=== PATIENT | female | born 1960 | race Caucasian/White ===

== ENCOUNTER 2022-05-11 23:25 | Emergency (ER) | payer OTHER ==
[~2022-05-11] VITALS: Ht 160 cm; Wt 64.0 kg
[~2022-05-11 23:25] MED LIST: DULO20CA PO
--- NOTE | 2022-05-12 00:12 | NUR ---
BIBS FOR C/O LOWER EXTREMITIES EDEMA, NOTED W. O2 SAT OF 87% ON R/A ON TRIAGE W/ HX OF COPD. PATIENT ALERT AND ORIENTED X3. AMBULATORY WITH NON LABORED BREATHING IN BED 06 ON MONITOR AND POX AWAITING MD KEARNEY.
[2022-05-12 01:04] LABS: BASOPHILS % (AUTO) 0.4 % (0.0-2.0); HEMATOCRIT 44 % (33-45); HEMOGLOBIN 13.9 g/dL (11.5-14.8); LYMPHOCYTES # (AUTO) 2.3 K/uL (0.8-4.8); LYMPHOCYTES % (AUTO) 28.9 % (20.0-44.0); MEAN CORPUSCULAR HGB CONC 32 g/dl (31.0-36.0); MEAN CORPUSCULAR VOLUME 91 fL (82-100); MONOCYTES # (AUTO) 0.9 K/uL (0.1-1.30); MONOCYTES % (AUTO) 10.6 % (2.0-12.0); NEUTROPHILS # (AUTO) 4.8 K/uL (1.8-8.9); NEUTROPHILS % (AUTO) 59.1 % (43.0-81.0); PLATELET COUNT (AUTO) 204 K/uL (150-450); RED BLOOD CELL COUNT(AUTO) 4.79 MIL/uL (4.0-5.2); WHITE BLOOD COUNT (AUTO) 8.1 K/uL (4.3-11.0)
[2022-05-12 01:20] LABS: CALCIUM, SERUM 8.8 mg/dL (8.5-10.1); CARBON DIOXIDE 39 mmol/L (21-32); CHLORIDE 101 mmol/L (98-107); CREATININE 0.6 mg/dL (0.6-1.3); GLUCOSE 93 mg/dL (74-106); POTASSIUM 3.7 mmol/L (3.5-5.1); SODIUM SERUM 141 mmol/L (136-145); UREA NITROGEN, BLOOD 13 mg/dL (7-18)
[2022-05-12 01:33] LABS: ALANINE AMINOTRANSFERASE 36 U/L (12-78); ALBUMIN 3.1 g/dL (3.4-5.0); ALKALINE PHOSPHATASE 136 U/L (46-116); ASPARTATE AMINOTRANSFERASE 22 U/L (15-37); BILIRUBIN,DIRECT 0.1 mg/dL (0.0-0.2); BILIRUBIN,TOTAL 0.3 mg/dL (0.2-1.0); TOTAL PROTEIN, SERUM 6.4 g/dL (6.4-8.2)
--- NOTE | 2022-05-12 01:51 | NUR ---
CALLED [facility] FOR IMAGING READ
[2022-05-12] MEDS ORDERED: FURO-145 PO (02:24)
[2022-05-12] MEDS ORDERED: FUROSEMIDE 40 MG TABLET ONE (02:27)
[2022-05-12] MEDS ORDERED: FUROSEMIDE 40 MG TABLET PO ONE (02:30)
[2022-05-12 02:32] VITALS: BP 154/98
--- NOTE | 2022-05-12 02:32 | NUR ---
Patient discharged to home in stable condition. Written and verbal after care instructions given. Patient verbalizes understanding of instruction.
[2022-05-12] MEDS ORDERED: ALBU18HF2 IH (15:24)
[2022-05-12] MEDS ORDERED: IPRA0.2S9 IH (15:24)
[2022-05-12] MEDS ORDERED: GABA-532 PO (15:24)
[2022-05-12] MEDS ORDERED: TEMA30CA PO (15:24)
[2022-05-12] MEDS ORDERED: TIOT4MIS5 IH (15:24)
== END 2022-05-12 02:34 | disposition home or self-care (01) ==
LOC: ER 23:29
DX: I50.9 Heart failure, unspecified (principal); J44.9 Chronic obstructive pulmonary disease, unspecified; F17.200 Nicotine dependence, unspecified, uncomplicated; Z90.13 Acquired absence of bilateral breasts and nipples; Z91.013 Allergy to seafood; Z88.8 Allergy status to other drugs, medicaments and biological substances; Z60.2 Problems related to living alone; Z79.899 Other long term (current) drug therapy
CPT/HCPCS: 36415; 71045-TC; 80048-TC; 80076-TC; 83880; 84484-TC; 85025-TC; 85730-TC

== ENCOUNTER 2022-05-12 14:58 | Inpatient (IN) | payer OTHER ==
[~2022-05-12] VITALS: Ht 160 cm; Wt 59.4 kg
[~2022-05-12 14:58] MED LIST changes: +FURO-145 PO
--- NOTE | 2022-05-12 15:06 | NUR ---
BIBS C/O SOB AND BILATERAL LOWE EXTREMITY EDEMA X 2 DAYS. PT WAS HERE LAST NIGHT. HX COPD. POX 87% ON RA. AAOX4, BREATHING EVEN AND UNLABORED, PULSES 2+ BILATERALLY, SKIN WARM TO TOUCH. ON MONITOR.
[2022-05-12] MEDS ORDERED: ALBU18HF2 IH (15:24)
[2022-05-12] MEDS ORDERED: IPRA0.2S9 IH (15:24)
[2022-05-12] MEDS ORDERED: GABA-532 PO (15:24)
[2022-05-12] MEDS ORDERED: TEMA30CA PO (15:24)
[2022-05-12] MEDS ORDERED: TIOT4MIS5 IH (15:24)
[2022-05-12] MEDS ORDERED: ALBUTEROL FS 2.5 MG/0.5 ML VIAL.NEB ONE (15:25)
[2022-05-12] MEDS ORDERED: ALBUTEROL FS 2.5 MG/3 ML VIAL.NEB ONE ×2 (15:25→17:05)
[2022-05-12] MEDS ORDERED: IPRATROPIUM NEB FS 0.5 MG/2.5 ML AMPUL.NEB ONE ×2 (15:25→17:05)
[2022-05-12] MEDS ORDERED: methylPREDNISolone SOD SUCC 125 MG/2ML VIAL ONE (15:29)
[2022-05-12] MEDS ORDERED: methylPREDNISolone SOD SUCC 125 MG/2ML VIAL IV ONE (15:30)
[2022-05-12] MEDS ORDERED: IPRATROPIUM NEB FS 0.5 MG/2.5 ML AMPUL.NEB NEB ONE ×2 (15:30→17:00)
[2022-05-12] MEDS ORDERED: ALBUTEROL FS 2.5 MG/3 ML VIAL.NEB NEB ONE ×2 (15:30→17:00)
--- NOTE | 2022-05-12 15:40 | NUR ---
BLOOD SAMPLE OBTAINED AND SENT TO LAB
[2022-05-12 15:50] LABS: BASOPHILS % (AUTO) 0.4 % (0.0-2.0); EOSINOPHILS % (AUTO) 0.4 % (0.0-6.0); HEMATOCRIT 50 % (33-45); HEMOGLOBIN 16.2 g/dL (11.5-14.8); LYMPHOCYTES # (AUTO) 1.3 K/uL (0.8-4.8); MEAN CORPUSCULAR HGB CONC 32 g/dl (31.0-36.0); MEAN CORPUSCULAR VOLUME 92 fL (82-100); MONOCYTES # (AUTO) 0.8 K/uL (0.1-1.30); MONOCYTES % (AUTO) 9.3 % (2.0-12.0); NEUTROPHILS # (AUTO) 6.7 K/uL (1.8-8.9); NEUTROPHILS % (AUTO) 74.9 % (43.0-81.0); PLATELET COUNT (AUTO) 201 K/uL (150-450); RED BLOOD CELL COUNT(AUTO) 5.51 MIL/uL (4.0-5.2); WHITE BLOOD COUNT (AUTO) 8.9 K/uL (4.3-11.0)
[2022-05-12 15:58] LABS: CALCIUM, SERUM 8.8 mg/dL (8.5-10.1); CREATININE 0.7 mg/dL (0.6-1.3); POTASSIUM 3.5 mmol/L (3.5-5.1)
[2022-05-12 16:38] LABS: BILIRUBIN,DIRECT 0.2 mg/dL (0.0-0.2); BILIRUBIN,TOTAL 0.8 mg/dL (0.2-1.0)
[2022-05-12 16:39] LABS: ALBUMIN 3.5 g/dL (3.4-5.0)
[2022-05-12] MEDS ORDERED: FUROSEMIDE 20 MG/2 ML VIAL IV ONE (17:00)
[2022-05-12] MEDS ORDERED: FUROSEMIDE 20 MG/2 ML VIAL ONE (17:03)
[2022-05-12 17:06] LABS: TOTAL PROTEIN, SERUM 7.4 g/dL (6.4-8.2)
[2022-05-12 17:30] LABS: ABG BASE EXCESS 7.8 mmol/L; ABG PCO2 49.9 mmHg (35.0-45.0); ABG PH 7.443 (7.350-7.450); ABG PO2 31.5 mmHg (75.0-100.0); COHb 3.6 % (0.5-1.5); O2Hb 64.1 % (94.0-97.0); SITE, ABG A-Line; VENT MODE, BG 2 L NC
[2022-05-12] MEDS ORDERED: ALBUTEROL FS 2.5 MG/0.5 ML VIAL.NEB NEB PRN (18:30)
[2022-05-12] MEDS ORDERED: ONDANSETRON HCL/PF 4 MG/2 ML VIAL IVP PRN (18:30)
[2022-05-12] MEDS ORDERED: IPRATROPIUM NEB FS 0.5 MG/2.5 ML AMPUL.NEB NEB PRN (18:30)
[2022-05-12] MEDS ORDERED: Z GUARD REMEDY 4 OZ OINT TP PRN (18:30)
[2022-05-12] MEDS ORDERED: MAGNESIUM HYDROXIDE 30 ML UDC PO PRN (18:30)
[2022-05-12] MEDS ORDERED: MAG HYDROX/AL HYDROX/SIMETH 30 ML UDC PO PRN (18:30)
[2022-05-12] MEDS ORDERED: ACETAMINOPHEN 325 MG TABLET PO PRN (18:30)
[2022-05-12] MEDS ORDERED: TEMAZEPAM 15 MG CAPSULE PO PRN (18:30)
[2022-05-12] MEDS ORDERED: HYDROCODONE/APAP 5/325MG TABLET PO PRN (18:30)
--- NOTE | 2022-05-12 19:01 | NUR ---
BED 111-1
[2022-05-12] MEDS ORDERED: ENOXAPARIN SODIUM 40 MG/0.4 ML DISP.SYRIN SQ SCH (19:30)
[2022-05-12 20:00] VITALS: BP 139/88
[2022-05-12] MEDS ORDERED: VANCOMYCIN 1.25 GM in IV D5W 250 ML IV ONE (20:00)
--- NOTE | 2022-05-12 20:14 | NUR ---
PT TRANSFERRING TO [facility] VIA ACLS PROTOCOL. VSS. ALL BELONGINGS WITH PT.
--- NOTE | 2022-05-12 20:17 | NUR ---
RN NOTE RECEIVED 61 Y F PATIENT FROM ER VIA [facility], PT ABLE TO AMBULATE TO BED, ON NC AT 2L TOLERATING WELL, WITH IV ACCESS ON LAC SL, INTACT, PATENT, AND FLUSHES WELL. NO COMPLAINTS OF PAIN AT THIS TIME, ORIENTED TO HOSPITAL ROOM AND BED FNX, INITIAL ASSESSMENT DONE, PICTURES TAKEN AND PLACED ON CHART, PLACED ON TELEMONITORING, CALL LIGHT WITHIN REACH, BED IN LOWEST AND LOCKED POSITION, WILL CONTINUE TO MONITOR.
[2022-05-12] MEDS: AZTREONAM 1 G in IV NS 0.9% 100 ML IV SCH (20:44)
[2022-05-12] MEDS: FUROSEMIDE 40 MG/4 ML VIAL IV SCH (22:09)
--- NOTE | 2022-05-12 22:17 | NUR ---
RN NOTE VS CHECKED AT 98.6, 139/88, 18, SATING AT 94% ON 2L NC. PT STATED UNABLE TO SLEEP WELL, SHE REQUESTED FOR A SLEEPING PILL. WILL CONT TO MONITOR.
[2022-05-12 22:20] LABS: BILIRUBIN,URINE NEGATIVE (NEGATIVE); COLOR,URINE YELLOW (YELLOW); LEUKOCYTE ESTERASE ,URINE NEGATIVE (NEGATIVE); NITRITE, URINE NEGATIVE (NEGATIVE); PH,URINE 8.5 (5.0-8.0); PROTEIN,URINE NEGATIVE (NEGATIVE); UGLUCOSE NEGATIVE (NEGATIVE); UROBILINOGEN,URINE 0.2 EU/dL (0.2)
[2022-05-13] VITALS: BP 142/79
[2022-05-13] MEDS: methylPREDNISolone SOD SUCC 125 MG/2ML VIAL IV SCH ×3 (00:28→11:42)
[2022-05-13 04:00] VITALS: BP_SYST 110; BP_SYST 142; BP_DIAS 62
[2022-05-13] MEDS: AZTREONAM 1 G in IV NS 0.9% 100 ML IV SCH ×2 (05:02→12:18)
--- NOTE | 2022-05-13 05:20 | NUR ---
RN NOTE PT IV ACCESS ON L FOREARM WAS DISLODGED, NOTED TO BE INFILTRATED AND IV PUMP KEEP ON ALARMING. WILL ATTEMPT TO INSERT NEW IV SITE.
--- NOTE | 2022-05-13 06:30 | NUR ---
RN NOTE INSERTED NEW IV ACCESS ON L WRIST #20g, INTACT, PATENT AND FLUSHES WELL, NO S/SX OF INFILTRATION NOTED. WILL CONT TO MONITOR.
--- NOTE | 2022-05-13 06:56 | NUR ---
SURGERY ATTENDANT CLOSING NOTE PT AWAKE ON BED, ALERT AND ORIENTED X4, ABLE TO MAKE NEEDS KNOWN, PT IS AMBULATORY, ON NC AT 2L TOLERATING WELL, WITH IV ACCESS ON L WRIST #20G, INTACT AND PATENT. NO COMPLAINTS OF PAIN AT THIS TIME, ON TELEMONITORING CURRENTLY READING 93 BPM, ALL DUE MEDS GIVEN, KEPT DRY AND CLEAN, CALL LIGHT WITHIN REACH, BED IN LOWEST AND LOCKED POSITION, WILL ENDORSE TO AM SHIFT NURSE FOR MAGEN.
[2022-05-13] MEDS ORDERED: PANTOPRAZOLE 40 MG TABLET.DR PO SCH (07:30)
--- NOTE | 2022-05-13 07:30 | NUR ---
RN NOTE RECEIVED PATIENT IN BED RESTING ALERT ORIENTED X4 VERBALLY RESPONSIVE ON 2L OXYGEN VIA NASAL CANNULA O2:92% IV SITE IS ON LEFT WRIST INTACT PATENT,CONTINET TO BOWEL/BLADDER SAFETY MEASURE IMPLEMENT BED IN LOW POSITION AND LOCKED,CALL LIGHT WITHIN REACH CONTINUE TO MONITOR.
[2022-05-13 07:43] LABS: BASOPHILS % (AUTO) 0.1 % (0.0-2.0); EOSINOPHILS % (AUTO) 0.7 % (0.0-6.0); HEMATOCRIT 46 % (33-45); LYMPHOCYTES # (AUTO) 0.4 K/uL (0.8-4.8); LYMPHOCYTES % (AUTO) 5.8 % (20.0-44.0); MEAN CORPUSCULAR HGB CONC 33 g/dl (31.0-36.0); MEAN CORPUSCULAR VOLUME 90 fL (82-100); MONOCYTES # (AUTO) 0.1 K/uL (0.1-1.30); MONOCYTES % (AUTO) 2.2 % (2.0-12.0); NEUTROPHILS # (AUTO) 6.2 K/uL (1.8-8.9); NEUTROPHILS % (AUTO) 91.2 % (43.0-81.0); PLATELET COUNT (AUTO) 181 K/uL (150-450); RED BLOOD CELL COUNT(AUTO) 5.14 MIL/uL (4.0-5.2); WHITE BLOOD COUNT (AUTO) 6.8 K/uL (4.3-11.0)
[2022-05-13 07:46] LABS: CALCIUM, SERUM 8.6 mg/dL (8.5-10.1); CREATININE 0.7 mg/dL (0.6-1.3); MAGNESIUM 1.6 mg/dL (1.8-2.4); PHOSPHORUS 3.8 mg/dL (2.5-4.9); POTASSIUM 3.2 mmol/L (3.5-5.1)
[2022-05-13 08:00] VITALS: BP 158/91
[2022-05-13] MEDS ORDERED: VANCOMYCIN 1 GM in IV D5W 250 ML IV SCH (08:00)
[2022-05-13] MEDS: FUROSEMIDE 40 MG/4 ML VIAL IV SCH (08:16)
[2022-05-13] MEDS ORDERED: DULOXETINE HCL 20 MG CAPSULE.DR PO SCH (09:00)
[2022-05-13] MEDS ORDERED: POTASSIUM CHLORIDE 20 MEQ TAB.PRT.SR PO SCH (10:00)
[2022-05-13] MEDS: ALBUTEROL HALF STRENGTH 1.25 MG/3 ML VIAL.NEB NEB SCH ×2 (10:00→13:28)
[2022-05-13] MEDS ORDERED: MAGNESIUM OXIDE 400 MG TABLET PO ONE (10:00)
[2022-05-13] MEDS: IPRATROPIUM NEB FS 0.5 MG/2.5 ML AMPUL.NEB NEB SCH ×2 (10:00→13:28)
--- NOTE | 2022-05-13 11:01 | NUR ---
pt. is awake and alert refused ABG. no SOB noted Addendum: 05/13/22 at 1102 by CHANTEL DOWELL RT Amended: Links added.
[2022-05-13 12:00] VITALS: BP 147/91
[2022-05-13 16:00] VITALS: BP 152/86
--- NOTE | 2022-05-13 16:52 | NUR ---
BUTTON BRADDER NOTE SPOKE WITH DR SIMMONS NOTIFIED THAT PATIENT WANTS TO GO AMA , STATED ITS OK NO DISCHARGE ORDER AT THIS TIME
--- NOTE | 2022-05-13 17:00 | NUR ---
RN NOTE PATIENT SIGNED AMA FORM AND LEFT HOSPITAL AGAINST MEDICAL ADVICE,SHE TOOK ALL HER BELONGINGS,EXPLAINED AND EDUCATED HER RISKS OF AMA SHE STILL WANTS TO LEAVE,RESPECT PATIENT RIGHT, SHE LEFT HOSPITAL.
[2022-05-13] MEDS ORDERED: GABAPENTIN 100 MG CAPSULE PO SCH (18:00)
== END 2022-05-13 18:51 | disposition left against medical advice (07) | DRG 140 ==
LOC: ER 15:02 → TELE1 19:14
PROVIDERS: ATTEND Internal Medicine
DX: J44.1 Chronic obstructive pulmonary disease with (acute) exacerbation (principal); I50.33 Acute on chronic diastolic (congestive) heart failure; D75.1 Secondary polycythemia; F17.200 Nicotine dependence, unspecified, uncomplicated; Z85.3 Personal history of malignant neoplasm of breast; Z90.13 Acquired absence of bilateral breasts and nipples; Z20.822 Contact with and (suspected) exposure to COVID-19; Z88.1 Allergy status to other antibiotic agents; Z88.0 Allergy status to penicillin; Z91.013 Allergy to seafood; Z79.51 Long term (current) use of inhaled steroids; Z79.899 Other long term (current) drug therapy; Z53.29 Procedure and treatment not carried out because of patient's decision for other reasons
CPT/HCPCS: 36415; 36600; 71045-TC; 80048-TC; 80076-TC; 82803-TC; 83735-TC; 83880; 84100-TC; 84484-TC; 85025-TC; 87081-TC; 93307-TC; 93970-TC; 94799-TC; 97116-TC; 97530-TC; C9803; G0378; J1650; J1940; J2930; J3370; J3490; J7030; J7050; J7060

== ENCOUNTER 2022-05-15 14:59 | Emergency (ER) | payer OTHER ==
[~2022-05-15] VITALS: Ht 160 cm; Wt 63.5 kg
[~2022-05-15 14:59] MED LIST changes: +ALBU18HF2 IH; +GABA-532 PO; +IPRA0.2S9 IH; +TEMA30CA PO; +TIOT4MIS5 IH
--- NOTE | 2022-05-15 16:02 | NUR ---
To ER bed 3, c/o "Abdominal Pain started this am", aaox3, breathing even and non labored, connected to monitor, awaiting md orders
--- NOTE | 2022-05-15 16:20 | NUR ---
URINE COLLECTED AND SENT TO LAB
[2022-05-15] MEDS ORDERED: KETOROLAC TROMETHAMINE 15 MG/ML VIAL ONE (16:22)
[2022-05-15] MEDS ORDERED: KETOROLAC TROMETHAMINE INJ 30 MG/ML VIAL IV ONE (16:30)
--- NOTE | 2022-05-15 16:40 | NUR ---
TAKEN TO CT VIA FARNDY
[2022-05-15 16:41] LABS: BASOPHILS % (AUTO) 0.4 % (0.0-2.0); EOSINOPHILS % (AUTO) 0.3 % (0.0-6.0); HEMATOCRIT 55 % (33-45); HEMOGLOBIN 17.5 g/dL (11.5-14.8); LYMPHOCYTES % (AUTO) 15.8 % (20.0-44.0); MEAN CORPUSCULAR HGB CONC 32 g/dl (31.0-36.0); MEAN CORPUSCULAR VOLUME 91 fL (82-100); MONOCYTES # (AUTO) 1.2 K/uL (0.1-1.30); MONOCYTES % (AUTO) 9.9 % (2.0-12.0); NEUTROPHILS # (AUTO) 9.3 K/uL (1.8-8.9); NEUTROPHILS % (AUTO) 73.6 % (43.0-81.0); PLATELET COUNT (AUTO) 236 K/uL (150-450); WHITE BLOOD COUNT (AUTO) 12.6 K/uL (4.3-11.0)
[2022-05-15 16:59] LABS: ALBUMIN 3.5 g/dL (3.4-5.0); BILIRUBIN,DIRECT 0.1 mg/dL (0.0-0.2); BILIRUBIN,TOTAL 0.6 mg/dL (0.2-1.0); CALCIUM, SERUM 8.9 mg/dL (8.5-10.1); CREATININE 0.7 mg/dL (0.6-1.3); POTASSIUM 2.9 mmol/L (3.5-5.1); TOTAL PROTEIN, SERUM 7.6 g/dL (6.4-8.2)
[2022-05-15 17:10] LABS: BILIRUBIN,URINE NEGATIVE (NEGATIVE); COLOR,URINE YELLOW (YELLOW); LEUKOCYTE ESTERASE ,URINE LARGE (NEGATIVE); NITRITE, URINE NEGATIVE (NEGATIVE); PH,URINE 7.5 (5.0-8.0); PROTEIN,URINE NEGATIVE (NEGATIVE); UGLUCOSE NEGATIVE (NEGATIVE); UROBILINOGEN,URINE 0.2 EU/dL (0.2)
[2022-05-15 17:20] LABS: BACTERIA,URINE Few /HPF (None Seen); RBC,URINE 0-2 /HPF (0-2)
[2022-05-15] MEDS ORDERED: POTASSIUM CHLORIDE 20 MEQ TAB.PRT.SR PO ONE ×2 (18:24→18:30)
[2022-05-15] MEDS ORDERED: DOXY100C2 PO (18:32)
[2022-05-15] MEDS ORDERED: POTA-58 PO (18:32)
--- NOTE | 2022-05-15 18:47 | NUR ---
IV removed. Catheter intact and site benign. Pressure and 4x4 applied to site. No bleeding noted.Patient discharged to home in stable condition. Written and verbal after care instructions given. Patient verbalizes understanding of instruction.
[2022-05-15 18:49] VITALS: BP 141/90
== END 2022-05-15 18:54 | disposition home or self-care (01) ==
LOC: ER 15:01
DX: E87.6 Hypokalemia (principal); J44.9 Chronic obstructive pulmonary disease, unspecified; N39.0 Urinary tract infection, site not specified; Z90.13 Acquired absence of bilateral breasts and nipples; Z88.8 Allergy status to other drugs, medicaments and biological substances; F17.200 Nicotine dependence, unspecified, uncomplicated; Z60.2 Problems related to living alone; Z79.899 Other long term (current) drug therapy
CPT/HCPCS: 36415; 70450; 71045; 74176; 80048; 80076; 81001; 82140; 83690; 83880; 84703; 85025; 85730; 87086; 93005; 96374; 99285; J1885

== ENCOUNTER 2022-06-17 14:24 | Emergency (ER) | payer OTHER ==
[~2022-06-17] VITALS: Ht 157.5 cm; Wt 63.5 kg
[~2022-06-17 14:24] MED LIST changes: +DOXY100C2 PO; +POTA-58 PO
--- NOTE | 2022-06-17 14:30 | NUR ---
PT W/ C/O PAIN ON BOTH HANDS AND FEET. STATED THAT SHE FELL A MONTH AGO. TO ER BED 4. PT A/O X4.
--- NOTE | 2022-06-17 15:28 | NUR ---
PHLEB AT BEDSIDE
--- NOTE | 2022-06-17 15:32 | NUR ---
URINE COLLECTED AND SENT
--- NOTE | 2022-06-17 15:53 | NUR ---
X RAY AT BEDSIDE
[2022-06-17 15:57] LABS: BASOPHILS % (AUTO) 0.3 % (0.0-2.0); EOSINOPHILS % (AUTO) 1.1 % (0.0-6.0); HEMATOCRIT 51 % (33-45); HEMOGLOBIN 16.5 g/dL (11.5-14.8); LYMPHOCYTES # (AUTO) 1.7 K/uL (0.8-4.8); LYMPHOCYTES % (AUTO) 22.5 % (20.0-44.0); MEAN CORPUSCULAR HGB CONC 32 g/dl (31.0-36.0); MEAN CORPUSCULAR VOLUME 91 fL (82-100); MONOCYTES # (AUTO) 0.5 K/uL (0.1-1.30); MONOCYTES % (AUTO) 6.4 % (2.0-12.0); NEUTROPHILS # (AUTO) 5.2 K/uL (1.8-8.9); NEUTROPHILS % (AUTO) 69.7 % (43.0-81.0); PLATELET COUNT (AUTO) 148 K/uL (150-450); RED BLOOD CELL COUNT(AUTO) 5.63 MIL/uL (4.0-5.2); WHITE BLOOD COUNT (AUTO) 7.4 K/uL (4.3-11.0)
[2022-06-17] MEDS ORDERED: GABAPENTIN 100 MG CAPSULE ONE (15:59)
[2022-06-17] MEDS ORDERED: GABAPENTIN 100 MG CAPSULE PO ONE (16:00)
[2022-06-17 16:11] LABS: BILIRUBIN,URINE NEGATIVE (NEGATIVE); COLOR,URINE YELLOW (YELLOW); LEUKOCYTE ESTERASE ,URINE NEGATIVE (NEGATIVE); NITRITE, URINE NEGATIVE (NEGATIVE); PROTEIN,URINE NEGATIVE (NEGATIVE); UGLUCOSE NEGATIVE (NEGATIVE); UROBILINOGEN,URINE 0.2 EU/dL (0.2)
[2022-06-17 16:19] LABS: CALCIUM, SERUM 9.2 mg/dL (8.5-10.1); CREATININE 0.5 mg/dL (0.6-1.3); POTASSIUM 4.2 mmol/L (3.5-5.1)
[2022-06-17 16:26] LABS: ALBUMIN 3.7 g/dL (3.4-5.0); BILIRUBIN,DIRECT 0.1 mg/dL (0.0-0.2); BILIRUBIN,TOTAL 0.4 mg/dL (0.2-1.0); TOTAL PROTEIN, SERUM 7.8 g/dL (6.4-8.2)
[2022-06-17] MEDS ORDERED: IBUP-1955 PO (17:01)
[2022-06-17] MEDS ORDERED: GABA-532 PO (17:01)
[2022-06-17] MEDS ORDERED: TRAM50TA2 PO (17:01)
[2022-06-17 17:17] VITALS: BP 122/84
--- NOTE | 2022-06-17 17:17 | NUR ---
Patient discharged to home in stable condition. Written and verbal after care instructions given. Patient verbalizes understanding of instruction.
== END 2022-06-17 17:18 | disposition home or self-care (01) ==
LOC: ER 14:37
DX: G62.9 Polyneuropathy, unspecified (principal); J44.9 Chronic obstructive pulmonary disease, unspecified; F17.200 Nicotine dependence, unspecified, uncomplicated; Z85.3 Personal history of malignant neoplasm of breast; Z90.13 Acquired absence of bilateral breasts and nipples; Z91.013 Allergy to seafood; Z88.0 Allergy status to penicillin; Z88.8 Allergy status to other drugs, medicaments and biological substances; Z60.2 Problems related to living alone; Z79.899 Other long term (current) drug therapy
CPT/HCPCS: 36415; 71045-TC; 80048-TC; 80076-TC; 85025-TC

== ENCOUNTER 2024-04-25 04:24 | Inpatient (IN) | payer OTHER ==
[2024-04-25] VITALS (11 sets, daily range): BP systolic 148–161; BP diastolic 101–132; TEMP 96.6–98.2; O2SAT 91–97
[~2024-04-25] VITALS: Ht 170.2 cm; Wt 51.3 kg
[~2024-04-25 04:24] MED LIST changes: +IBUP-1955 PO; +TRAM50TA2 PO
[2024-04-25] MEDS: ALBUTEROL FS 2.5 MG/3 ML VIAL.NEB CONTNEB ONE (04:41)
[2024-04-25] MEDS: IPRATROPIUM NEB FS 0.5 MG/2.5 ML AMPUL.NEB NEB ONE (04:41)
[2024-04-25] MEDS ORDERED: ALBUTEROL FS 2.5 MG/3 ML VIAL.NEB ONE (04:42)
[2024-04-25] MEDS ORDERED: IPRATROPIUM NEB FS 0.5 MG/2.5 ML AMPUL.NEB ONE (04:42)
[2024-04-25] MEDS ORDERED: methylPREDNISolone SOD SUCC 125 MG/2ML VIAL ONE (04:47)
[2024-04-25 05:30] LABS: BASOPHILS # (AUTO) 0.1 K/uL (0.0-0.2); BASOPHILS % (AUTO) 0.6 % (0.0-2.0); EOSINOPHILS % (AUTO) 0.1 % (0.0-6.0); HEMATOCRIT 47 % (33-45); HEMOGLOBIN 15.9 g/dL (11.5-14.8); LYMPHOCYTES # (AUTO) 2.3 K/uL (0.8-4.8); LYMPHOCYTES % (AUTO) 21.5 % (20.0-44.0); MEAN CORPUSCULAR HEMOGLOBIN 33 PG (26.0-33.0); MEAN CORPUSCULAR HGB CONC 34 g/dl (31.0-36.0); MEAN CORPUSCULAR VOLUME 97 fL (82-100); MONOCYTES # (AUTO) 1.2 K/uL (0.1-1.30); MONOCYTES % (AUTO) 10.8 % (2.0-12.0); NEUTROPHILS # (AUTO) 7.2 K/uL (1.8-8.9); PLATELET COUNT (AUTO) 177 K/uL (150-450); RED BLOOD CELL COUNT(AUTO) 4.87 MIL/uL (4.0-5.2); RED CELL DISTRIBUTION WIDTH 13.4 % (11.5-15.0); WHITE BLOOD COUNT (AUTO) 10.7 K/uL (4.3-11.0)
[2024-04-25] MEDS: methylPREDNISolone SOD SUCC 125 MG/2ML VIAL IV ONE (05:35)
[2024-04-25 05:44] LABS: ALANINE AMINOTRANSFERASE 33 U/L (12-78); ALBUMIN 3.5 g/dL (3.4-5.0); ALKALINE PHOSPHATASE 135 U/L (46-116); ASPARTATE AMINOTRANSFERASE 25 U/L (15-37); BILIRUBIN,DIRECT 0.1 mg/dL (0.0-0.2); BILIRUBIN,TOTAL 0.4 mg/dL (0.2-1.0); CALCIUM, SERUM 9.9 mg/dL (8.5-10.1); CARBON DIOXIDE 38 mmol/L (21-32); CHLORIDE 99 mmol/L (98-107); CREATININE 0.6 mg/dL (0.6-1.3); GLUCOSE 130 mg/dL (74-106); POTASSIUM 3.7 mmol/L (3.5-5.1); SODIUM SERUM 140 mmol/L (136-145); UREA NITROGEN, BLOOD 11 mg/dL (7-18)
[2024-04-25] MEDS ORDERED: TERBUTALINE SULFATE 1 MG/ML VIAL ONE (05:44)
[2024-04-25] MEDS ORDERED: Magnesium 1GM/D5W 100ML PREMIX 200 ML IV ONE (05:45)
[2024-04-25] MEDS: Magnesium 1GM/D5W 100ML PREMIX 200 ML IV ONE (05:48)
[2024-04-25] MEDS: TERBUTALINE SULFATE 1 MG/ML VIAL SQ ONE (05:48)
[2024-04-25] MEDS ORDERED: ALBUTEROL FS 2.5 MG/3 ML VIAL.NEB NEB ONE (06:30)
[2024-04-25] MEDS ORDERED: ONDANSETRON HCL/PF 4 MG/2 ML VIAL IVP PRN (06:30)
[2024-04-25] MEDS ORDERED: MAG HYDROX/AL HYDROX/SIMETH 30 ML UDC PO PRN (06:30)
[2024-04-25] MEDS ORDERED: Z GUARD REMEDY 4 OZ OINT TP PRN (06:30)
[2024-04-25] MEDS ORDERED: ACETAMINOPHEN 325 MG TABLET PO PRN (06:30)
[2024-04-25] MEDS ORDERED: MAGNESIUM HYDROXIDE 30 ML UDC PO PRN (06:30)
[2024-04-25] MEDS ORDERED: ALBUTEROL FS 2.5 MG/0.5 ML VIAL.NEB NEB PRN (06:30)
[2024-04-25] MEDS ORDERED: IPRATROPIUM NEB FS 0.5 MG/2.5 ML AMPUL.NEB NEB PRN (06:30)
[2024-04-25] MEDS ORDERED: LOSA25TA27 PO (07:53)
[2024-04-25] MEDS ORDERED: BUDE10.2 INH (07:53)
[2024-04-25] MEDS ORDERED: CELE200C PO (07:53)
[2024-04-25] MEDS ORDERED: LEVO500T90 PO (07:53)
[2024-04-25] MEDS ORDERED: TIOTROPIUM BROMIDE IH SCH (09:00)
[2024-04-25] MEDS: POTASSIUM CHLORIDE 20 MEQ TAB.PRT.SR PO SCH (09:00)
[2024-04-25] MEDS: FUROSEMIDE 40 MG/4 ML VIAL IV SCH (10:32)
[2024-04-25] MEDS: DULOXETINE HCL 30 MG CAPSULE.DR PO SCH (10:32)
[2024-04-25] MEDS: methylPREDNISolone SOD SUCC 40 MG/ML VIAL IV SCH (11:20)
[2024-04-25] MEDS ORDERED: HOME MED MISCELLANEOUS XX SCH (11:30)
[2024-04-25] MEDS: LOSARTAN POTASSIUM 25 MG TABLET PO SCH (11:56)
[2024-04-25] MEDS: ENOXAPARIN SODIUM 40 MG/0.4 ML DISP.SYRIN SQ SCH (12:30)
[2024-04-25] MEDS: LEVOFLOXACIN (250MG) 250 MG TABLET PO SCH (12:58)
[2024-04-25] MEDS ORDERED: ALBUTEROL HALF STRENGTH 1.25 MG/3 ML VIAL.NEB NEB PRN (13:00)
[2024-04-25] MEDS ORDERED: ALBUTEROL FS 2.5 MG/3 ML VIAL.NEB NEB SCH (13:30)
[2024-04-25] MEDS ORDERED: IPRATROPIUM NEB FS 0.5 MG/2.5 ML AMPUL.NEB NEB SCH (13:30)
[2024-04-25] MEDS: IPRATROPIUM NEB FS 0.5 MG/2.5 ML AMPUL.NEB NEB SCH (13:36)
[2024-04-25] MEDS: ALBUTEROL FS 2.5 MG/3 ML VIAL.NEB NEB SCH (13:36)
[2024-04-25] MEDS: TRAMADOL HCL 50 MG TABLET PO PRN (16:08)
[2024-04-25] MEDS: GABAPENTIN 100 MG CAPSULE PO SCH (17:01)
[2024-04-25] MEDS: VALSARTAN 80 MG TABLET PO SCH (17:48)
[2024-04-25 17:49] LABS: ABG BASE EXCESS 12.9 mmol/L; ABG OXYGEN SATURATION 90.1 % (92.0-98.5); ABG PCO2 62.4 mmHg (35.0-45.0); ABG PH 7.432 (7.350-7.450); ABG TOTAL HEMOGLOBIN 16.7 G/dL (12.0-16.0); COHb 2.2 % (0.5-1.5); MetHb 0.2 % (0.0-1.5); O2Hb 87.9 % (94.0-97.0); SITE, ABG Left Brachial; VENT MODE, BG nasal cannula
[2024-04-25 17:49] LABS: ABG BASE EXCESS 1.2 mmol/L; ABG OXYGEN SATURATION 90.4 % (92.0-98.5); ABG PCO2 52.6 mmHg (35.0-45.0); ABG PH 7.345 (7.350-7.450); ABG PO2 59.9 mmHg (75.0-100.0); COHb 3.7 % (0.5-1.5); MetHb 0.4 % (0.0-1.5); O2Hb 86.7 % (94.0-97.0); SITE, ABG Left Radial; VENT MODE, BG 4LPM NC
[2024-04-25] MEDS: BUDESONIDE RESPULE INH 0.5 MG/2 ML AMPUL.NEB NEB SCH (19:38)
[2024-04-25] MEDS ORDERED: TEMAZEPAM 7.5 MG CAPSULE PO PRN (22:00)
[2024-04-26] VITALS (12 sets, daily range): BP systolic 146–172; BP diastolic 82–110; TEMP 97–98.2; O2SAT 91–99
[2024-04-26] MEDS: hydrALAZINE HCL IV 20 MG VIAL IV PRN (00:41)
[2024-04-26 06:31] LABS: HEMATOCRIT 43 % (33-45); HEMOGLOBIN 14.9 g/dL (11.5-14.8); LYMPHOCYTES # (AUTO) 0.7 K/uL (0.8-4.8); LYMPHOCYTES % (AUTO) 7.4 % (20.0-44.0); MEAN CORPUSCULAR HEMOGLOBIN 33 PG (26.0-33.0); MEAN CORPUSCULAR HGB CONC 34 g/dl (31.0-36.0); MEAN CORPUSCULAR VOLUME 95 fL (82-100); MONOCYTES # (AUTO) 0.4 K/uL (0.1-1.30); MONOCYTES % (AUTO) 4.1 % (2.0-12.0); NEUTROPHILS # (AUTO) 8.8 K/uL (1.8-8.9); NEUTROPHILS % (AUTO) 88.5 % (43.0-81.0); PLATELET COUNT (AUTO) 183 K/uL (150-450); RED BLOOD CELL COUNT(AUTO) 4.55 MIL/uL (4.0-5.2); RED CELL DISTRIBUTION WIDTH 13.2 % (11.5-15.0); WHITE BLOOD COUNT (AUTO) 9.9 K/uL (4.3-11.0)
[2024-04-26 07:13] LABS: CALCIUM, SERUM 9.6 mg/dL (8.5-10.1); CREATININE 0.6 mg/dL (0.6-1.3); MAGNESIUM 2.3 mg/dL (1.8-2.4); PHOSPHORUS 3.9 mg/dL (2.5-4.9)
[2024-04-26] MEDS ORDERED: TIOTROPIUM BROMIDE 6 CAP/BOX CAP.W.DEV IH SCH (09:00)
[2024-04-26] MEDS: NICOTINE PATCH (21MG) 21 MG PATCH.TD24 TD SCH (09:43)
[2024-04-26] MEDS ORDERED: hydrALAZINE HCL IV 20 MG VIAL IV PRN (10:30)
[2024-04-26] MEDS: ENSURE ENLIVE 237 ML LIQUID (VANILLA) PO SCH (12:15)
[2024-04-26] MEDS: LORAZEPAM 0.5 MG TABLET PO PRN (16:03)
[2024-04-27] VITALS (15 sets, daily range): BP systolic 138–163; BP diastolic 86–106; TEMP 97.7–98.4; O2SAT 92–99
[2024-04-27] MEDS: CLONIDINE HCL 0.1 MG TABLET PO SCH (08:35)
[2024-04-27 10:08] LABS: ALBUMIN 2.9 g/dL (3.4-5.0); BILIRUBIN,TOTAL 0.4 mg/dL (0.2-1.0); CALCIUM, SERUM 9.4 mg/dL (8.5-10.1); CREATININE 0.5 mg/dL (0.6-1.3); POTASSIUM 3.9 mmol/L (3.5-5.1); TOTAL PROTEIN, SERUM 6.7 g/dL (6.4-8.2)
[2024-04-28] VITALS (16 sets, daily range): BP systolic 136–166; BP diastolic 68–98; TEMP 98.2–98.8; O2SAT 94–99
[2024-04-28 07:02] LABS: CREATININE 0.5 mg/dL (0.6-1.3); MAGNESIUM 2.4 mg/dL (1.8-2.4); PHOSPHORUS 3.4 mg/dL (2.5-4.9); POTASSIUM 4.3 mmol/L (3.5-5.1)
[2024-04-28 07:28] LABS: THYROID STIMULATING HORMONE 0.257 uIU/mL (0.358-3.74); URIC ACID 2.4 mg/dL (2.6-7.2)
[2024-04-29] VITALS (15 sets, daily range): BP systolic 126–164; BP diastolic 65–90; TEMP 97.2–98.8; O2SAT 94–100
[2024-04-29] MEDS: IPRATROPIUM NEB FS 0.5 MG/2.5 ML AMPUL.NEB NEB SCH (09:00)
[2024-04-29] MEDS: ALBUTEROL FS 2.5 MG/3 ML VIAL.NEB NEB SCH (09:00)
[2024-04-29] MEDS: methylPREDNISolone SOD SUCC 40 MG/ML VIAL IV SCH (10:04)
[2024-04-29] MEDS: IPRATROPIUM NEB FS 0.5 MG/2.5 ML AMPUL.NEB NEB ONE (20:01)
[2024-04-30] VITALS (9 sets, daily range): BP systolic 111–156; BP diastolic 67–89; TEMP 97.7–98.8; O2SAT 96–100
[2024-04-30 09:57] LABS: CALCIUM, SERUM 9.7 mg/dL (8.5-10.1); CREATININE 0.5 mg/dL (0.6-1.3); MAGNESIUM 2.3 mg/dL (1.8-2.4); PHOSPHORUS 3.1 mg/dL (2.5-4.9); POTASSIUM 4.3 mmol/L (3.5-5.1)
[2024-04-30] MEDS: CELECOXIB 100 MG CAPSULE PO PRN (10:17)
[2024-04-30] MEDS ORDERED: BUDE10.2 INH (11:59)
[2024-04-30] MEDS ORDERED: LEVO500T90 PO (11:59)
[2024-04-30] MEDS ORDERED: ALBU18HF2 IH (11:59)
[2024-04-30] MEDS ORDERED: PRED20TA PO (11:59)
[2024-04-30] MEDS ORDERED: GABA100C PO (11:59)
[2024-04-30 15:01] LABS: THYROID STIMULATING HORMONE 0.618 uIU/mL (0.358-3.74)
== END 2024-04-30 17:02 | disposition home or self-care (01) | DRG 140 ==
LOC: ER 04:25 → TRANSITION 06:19 → TELE-TD 08:03 → TELE1 04-26 09:25
PROVIDERS: ADMIT Nurse Practitioner Acute Care; ATTEND Internal Medicine
PROC: 5A09357 Assistance with Respiratory Ventilation, Less than 24 Consecutive Hours, Continuous Positive Airway Pressure (ICD-10-PCS; principal; 2024-04-26)
DX: J44.1 Chronic obstructive pulmonary disease with (acute) exacerbation (principal); J96.21 Acute and chronic respiratory failure with hypoxia; I50.32 Chronic diastolic (congestive) heart failure; I11.0 Hypertensive heart disease with heart failure; J20.9 Acute bronchitis, unspecified; J44.0 Chronic obstructive pulmonary disease with (acute) lower respiratory infection; J96.22 Acute and chronic respiratory failure with hypercapnia; E87.1 Hypo-osmolality and hyponatremia; F32.A Depression, unspecified; Z85.3 Personal history of malignant neoplasm of breast; Z87.891 Personal history of nicotine dependence; Z88.0 Allergy status to penicillin; Z20.822 Contact with and (suspected) exposure to COVID-19; D75.1 Secondary polycythemia; Z90.13 Acquired absence of bilateral breasts and nipples; Z91.199 Patient's noncompliance with other medical treatment and regimen due to unspecified reason
CPT/HCPCS: 36415; 36600; 71045-TC; 80048-TC; 80053-TC; 80076-TC; 82533; 82803-TC; 83735-TC; 83880; 84100-TC; 84443-TC; 84484-TC; 84550-TC; 85025-TC; 93307-TC; 94760-TC; 94762-TC; 94799-TC; G0378; J0360; J1650; J1940; J2919; J3105; J3475